=== PATIENT | female | born 1960 | race Caucasian/White ===

== ENCOUNTER 2022-05-12 08:11 | Emergency (ER) | payer OTHER ==
[~2022-05-12] VITALS: Ht 162.6 cm; Wt 65.8 kg
[2022-05-12] MEDS ORDERED: SIMVASTATIN5 MG PO (08:25)
[2022-05-12] MEDS ORDERED: TIROSINT125 MCG PO (08:25)
[2022-05-12] MEDS ORDERED: NAPROXEN500 MG PO (09:10)
== END 2022-05-12 10:52 | disposition home or self-care (01) ==
LOC: ER 08:11
DX: S93.401A Sprain of unspecified ligament of right ankle, initial encounter (principal); X50.1XXA Overexertion from prolonged static or awkward postures, initial encounter; Y93.9 Activity, unspecified; Y92.9 Unspecified place or not applicable; Y99.9 Unspecified external cause status